=== PATIENT | male | born 1965 | race Caucasian/White ===

== ENCOUNTER → 2019-12-08 12:44 | Outpatient (BNVA) | payer MEDICAID, SELFPAY | PROVIDERS: Family Provider Student in an Organized Health Care Education/Training Program; PCP Student in an Organized Health Care Education/Training Program; Visit Provider Otolaryngology | DX: J32.9 Chronic sinusitis, unspecified (principal) | CPT/HCPCS: 99214 ==

== ENCOUNTER → 2019-12-21 09:51 | Outpatient (BNVA) | payer MEDICAID, SELFPAY | PROVIDERS: Family Provider Student in an Organized Health Care Education/Training Program; PCP Student in an Organized Health Care Education/Training Program; Referring Provider Student in an Organized Health Care Education/Training Program; Visit Provider Otolaryngology | DX: J32.9 Chronic sinusitis, unspecified (principal); J34.2 Deviated nasal septum; J34.3 Hypertrophy of nasal turbinates; F17.210 Nicotine dependence, cigarettes, uncomplicated | CPT/HCPCS: 99213; 99214 ==

== ENCOUNTER → 2021-07-23 10:50 | Outpatient (BNVA) | payer MEDICAID, SELFPAY | PROVIDERS: Family Provider Student in an Organized Health Care Education/Training Program; PCP Student in an Organized Health Care Education/Training Program; Referring Provider Student in an Organized Health Care Education/Training Program; Visit Provider Orthopaedic Surgery | DX: M54.2 Cervicalgia (principal) | CPT/HCPCS: 72040 ==

== ENCOUNTER → 2021-07-26 08:16 | Outpatient (BNVA) | payer MEDICAID, SELFPAY | PROVIDERS: Family Provider Student in an Organized Health Care Education/Training Program; PCP Student in an Organized Health Care Education/Training Program; Referring Provider Orthopaedic Surgery; Visit Provider Anesthesiology Pain Medicine | DX: M54.2 Cervicalgia (principal); Z87.891 Personal history of nicotine dependence; Z79.891 Long term (current) use of opiate analgesic | CPT/HCPCS: 99204 ==

== ENCOUNTER → 2021-08-07 13:35 | Outpatient (BNVA) | payer MEDICAID, SELFPAY | PROVIDERS: Family Provider Student in an Organized Health Care Education/Training Program; PCP Student in an Organized Health Care Education/Training Program; Visit Provider Anesthesiology Pain Medicine | DX: M54.12 Radiculopathy, cervical region (principal); Z79.891 Long term (current) use of opiate analgesic | CPT/HCPCS: 62321; J1100 ==

== ENCOUNTER → 2021-08-21 10:13 | Outpatient (BNVA) | payer MEDICAID, SELFPAY | PROVIDERS: Family Provider Student in an Organized Health Care Education/Training Program; PCP Student in an Organized Health Care Education/Training Program; Visit Provider Anesthesiology Pain Medicine | DX: M54.2 Cervicalgia (principal); M51.17 Intervertebral disc disorders with radiculopathy, lumbosacral region; Z79.891 Long term (current) use of opiate analgesic | CPT/HCPCS: 99213 ==

== ENCOUNTER → 2021-09-18 09:30 | Outpatient (BNVA) | payer MEDICAID, SELFPAY | PROVIDERS: Family Provider Student in an Organized Health Care Education/Training Program; PCP Student in an Organized Health Care Education/Training Program; Visit Provider Anesthesiology Pain Medicine | DX: M47.22 Other spondylosis with radiculopathy, cervical region (principal); M25.511 Pain in right shoulder; Z79.891 Long term (current) use of opiate analgesic; Z87.891 Personal history of nicotine dependence | CPT/HCPCS: 99214 ==

== ENCOUNTER → 2021-09-26 07:54 | Outpatient (BNVA) | payer MEDICAID, SELFPAY | PROVIDERS: Family Provider Student in an Organized Health Care Education/Training Program; PCP Student in an Organized Health Care Education/Training Program; Referring Provider Orthopaedic Surgery; Visit Provider Specialist | DX: M47.22 Other spondylosis with radiculopathy, cervical region (principal); F17.200 Nicotine dependence, unspecified, uncomplicated | CPT/HCPCS: 95908 ==

== ENCOUNTER 2021-11-11 12:15 | Outpatient (CLI) | payer MEDICAID, SELFPAY ==
--- NOTE | 2021-11-11 13:00 | MR_ITS ---
WS: [id number] MRI CERVICAL SPINE NONCONTRAST AND CONTRAST TECHNIQUE: Sagittal T1, T2 and STIR imaging. Axial T2, gradient, and fiesta imaging. Post gadolinium imaging was obtained. CLINICAL INFORMATION: M47.22 - Other spondylosis with radiculopathy, cervical r... COMPARISON: Outside examination December 19, 2019 FINDINGS: Straightening of the normal cervical lordosis. Anterior cervical fusion C6-C7. Fusion appears unchang ed from previous. Cord signal is normal. No abnormal gadolinium enhancement. C2-C3: Mild disc osteophyte complex with endplate ridging. Moderate right and mild left foraminal russell rowing. Spinal canal is patent. C3-C4: Mild disc osteophytic complex with broad-based central protrusion similar to previous. Mild ce ntral canal stenosis. Moderate right and mild left foraminal narrowing. C4-C5: Mild disc osteophyte complex with tiny shallow left pericentral protrusion. Mild left greater than right foraminal narrowing. Mild facet arthropathy. Spinal canal is patent. C5-C6: Disc osteophyte complex with endplate ridging. Moderate bilateral bony foraminal narrowing. Mi ld facet arthropathy. C6-C7: Prior postoperative changes ACDF. Spinal canal and foramen are patent. C7-T1: Mild disc bulging with osteophytic ridging. Mild left greater than right foraminal narrowing. Spinal canal is patent. Visualized brain stem structures: Normal. Prevertebral soft tissues: Normal. MR/MR cervical spine wo/w [id number] IMPRESSION: 1. Straightening of the normal cervical lordosis. Prior postoperative changes C6-7 appears unchanged from previous. 2. Mild broad-based central protrusion C3-C4 with slight effacement of ventral thecal sac. This appears similar to previous. 3. Moderate right C2-3 and C3-C4 bony foraminal narrowing. 4. Moderate bilateral bony foraminal narrowing C5-C6 with mild to moderate fac et arthropathy. 5. Mild left C7-T1 bony foraminal narrowing. 6. No abnormal gadolinium enhancement.
[2021-11-11] MEDS: gadobenate dimeglumine 20 mL vial IV (13:40)
== END 2021-11-11 12:16 | disposition home or self-care (01) ==
LOC: RADSHAW 12:18
PROVIDERS: PCP Student in an Organized Health Care Education/Training Program; Visit Provider Anesthesiology Pain Medicine
DX: M47.22 Other spondylosis with radiculopathy, cervical region (principal); M50.21 Other cervical disc displacement, high cervical region
CPT/HCPCS: 72156; A9577

== ENCOUNTER → 2021-11-13 13:07 | Outpatient (BNVA) | payer MEDICAID, SELFPAY | PROVIDERS: PCP Student in an Organized Health Care Education/Training Program; Referring Provider Student in an Organized Health Care Education/Training Program; Visit Provider Orthopaedic Surgery | DX: M77.12 Lateral epicondylitis, left elbow (principal); M25.562 Pain in left knee | CPT/HCPCS: 73080; 73560; 73565 ==

== ENCOUNTER → 2021-11-14 10:00 | Outpatient (BNVA) | payer MEDICAID, SELFPAY | PROVIDERS: PCP Student in an Organized Health Care Education/Training Program; Visit Provider Anesthesiology Pain Medicine | DX: M47.22 Other spondylosis with radiculopathy, cervical region (principal); M25.511 Pain in right shoulder; M79.601 Pain in right arm; Z79.891 Long term (current) use of opiate analgesic; Z87.891 Personal history of nicotine dependence | CPT/HCPCS: 99214 ==

== ENCOUNTER → 2021-12-03 13:05 | Outpatient (BNVA) | payer MEDICAID, SELFPAY | PROVIDERS: PCP Student in an Organized Health Care Education/Training Program; Visit Provider Anesthesiology Pain Medicine | DX: Z79.891 Long term (current) use of opiate analgesic (principal); M54.12 Radiculopathy, cervical region | CPT/HCPCS: 62321; J1100 ==

== ENCOUNTER → 2021-12-17 10:01 | Outpatient (BNVA) | payer MEDICAID, SELFPAY | PROVIDERS: PCP Student in an Organized Health Care Education/Training Program; Visit Provider Anesthesiology Pain Medicine | DX: M47.22 Other spondylosis with radiculopathy, cervical region (principal); M25.511 Pain in right shoulder; Z79.891 Long term (current) use of opiate analgesic; Z87.891 Personal history of nicotine dependence | CPT/HCPCS: 99214 ==

== ENCOUNTER → 2022-03-13 09:26 | Outpatient (BNVA) | payer MEDICAID, SELFPAY | PROVIDERS: PCP Student in an Organized Health Care Education/Training Program; Visit Provider Anesthesiology Pain Medicine | DX: M47.22 Other spondylosis with radiculopathy, cervical region (principal); Z79.891 Long term (current) use of opiate analgesic; Z87.891 Personal history of nicotine dependence | CPT/HCPCS: 99214 ==

== ENCOUNTER → 2022-03-24 14:04 | Outpatient (BNVA) | payer MEDICAID, SELFPAY | PROVIDERS: PCP Student in an Organized Health Care Education/Training Program; Visit Provider Anesthesiology Pain Medicine | DX: Z79.891 Long term (current) use of opiate analgesic (principal); Z87.891 Personal history of nicotine dependence; M54.12 Radiculopathy, cervical region | CPT/HCPCS: 62321; J1100 ==

== ENCOUNTER → 2022-03-25 14:50 | Outpatient (BNVA) | payer MEDICAID, SELFPAY | PROVIDERS: PCP Student in an Organized Health Care Education/Training Program; Referring Provider Anesthesiology Pain Medicine; Visit Provider Physician Assistant | DX: M50.30 Other cervical disc degeneration, unspecified cervical region (principal); Z98.1 Arthrodesis status | CPT/HCPCS: 99213; 99999 ==

== ENCOUNTER → 2022-04-07 10:48 | Outpatient (BNVA) | payer MEDICAID, SELFPAY | PROVIDERS: PCP Student in an Organized Health Care Education/Training Program; Visit Provider Anesthesiology Pain Medicine | DX: M47.22 Other spondylosis with radiculopathy, cervical region (principal); M25.511 Pain in right shoulder; M79.601 Pain in right arm; Z87.891 Personal history of nicotine dependence; Z79.891 Long term (current) use of opiate analgesic | CPT/HCPCS: 99213 ==

== ENCOUNTER 2022-05-14 09:58 | Day surgery (SDC) | payer MEDICAID, SELFPAY ==
[2022-05-12 11:50] VITALS: BMI 32.1
--- NOTE | 2022-05-12 20:19 | ANES.PREANE2 ---
Pre-Anesthetic Assessment Height/Weight: Height 1.88 m Weight 113.398 kg Preop Diagnosis: s/p cervical fusion Operation Date: 05/14/22 11:55 Proposed Procedures p Anterior Cervical Discectomy & Fusion C4/5 C5/6 C6/7 [id number](Not Applicable) - Krishan Doyle, DO Familial anesthetic complications: none Was Beta James taken within 24 hours: N/A Was Clonidine taken within 24 hours: N/A Social No alcohol and No tobacco Uses oral marijuana Exam alert, oriented x 3, clear to auscultation bilaterally and regular rate & rhythm Airway Submandibular: within normal limits Cervical ROM: Other (Limited flexion/extension ) Mallampati: Class III Comments: Comments: missing teeth Pulmonary Chronic Obstructive Pulmonary Disease and Sleep Apnea Deviated septum, nasal turbinate hypertrophy CV/HEM Hypertension METS < 4, denies CAD None reported Hepatic None reported GI None reported Metabolic None reported Musc/skel Lower Back Pain and Osteoarthritis/DJD Neuropsych Neuropathy (cervical radiculopathy ) Anesthetic Plan ASA status: 3 (56 year old former smoker with hx of COPD, marijuana use, cervical radiculopathy, htn) Anesthesia: Anesthesia Evaluation and General Other: We discussed risk and benefits of general anesthesia including PONV, sore throat (sometimes severe), corneal abrasion, positioning and peripheral nerve injuries, life threatening allergic reaction, post operative ICU admission requiring prolonged intubation, aspiration, stroke, heart attack, , and rare incidences of recall. Patient consents to proceed with general anesthesia, arterial line placement. Discussed 2 PIV, arterial line. Risk of > 500 ml blood loss (7ml/kg in children): Yes, adequate IV access and fluids planned Medications/Allergies Home Medications Medication Instructions Recorded Confirmed Last Taken Type albuterol sulfate 90 mcg/actuation 2 puff INHALATION Q6H PRN 12/02/19 05/12/22 Unknown History aerosol inhaler amlodipine 10 mg tablet 10 mg PO ONCE 12/02/19 05/12/22 Unknown History bupropion HCl 150 mg 24 hr tablet, 150 mg PO QAM 12/02/19 05/12/22 Unknown History extended release fluticasone propionate 50 1 spray INTRANASAL BID 12/02/19 05/12/22 Unknown History mcg/actuation nasal spray,suspension (Flonase Allergy Relief) lisinopril 40 mg tablet 40 mg PO ONCE 12/02/19 05/12/22 Unknown History loratadine 10 mg tablet (Allergy 10 mg PO ONCE 12/02/19 05/12/22 Unknown History Relief (loratadine)) montelukast 10 mg tablet 10 mg PO ONCE 12/02/19 05/12/22 Unknown History (Singulair) tiotropium bromide 18 mcg capsule 1 cap INHALATION ONCE 12/02/19 05/12/22 Unknown History with inhalation device (Spiriva with HandiHaler) atorvastatin 40 mg tablet 40 mg PO DAILY 07/26/21 05/12/22 Unknown History fluticasone 250 mcg-salmeterol 50 1 inh INHALATION BID 07/26/21 05/12/22 Unknown History mcg/dose blistr powdr for inhalation (Advair Diskus) naproxen sodium 220 mg tablet 220 mg PO TID PRN tab 07/26/21 05/12/22 Unknown History (Aleve) tramadol 50 mg tablet 50 mg PO ONCE PRN tab 07/26/21 05/12/22 Unknown History tizanidine 4 mg tablet 4 mg PO BID PRN #60 tab 12/17/21 05/12/22 Unknown Rx MARIJUIANA 1 tab PO DAILY 03/24/22 05/12/22 Unknown History ibuprofen 200 mg tablet 200 mg PO Q6H PRN 03/24/22 05/12/22 Unknown History naproxen sodium 220 mg tablet 220 mg PO BID PRN 03/24/22 05/12/22 Unknown History (Aleve) Allergies Allergy/AdvReac Type Severity Reaction Status Date / Time cephalexin [From Keflex] Allergy Unknown ALGY-Anaphy Verified 05/12/22 11:42 laxis codeine Allergy Unknown ALGY-Anaphy Verified 05/12/22 11:42 laxis penicillin V Allergy Unknown ALGY-Anaphy Verified 05/12/22 11:42 laxis PFSH Anesthesia Medical History Chronic sinusitis Deviated septum Nasal turbinate hypertrophy Family History Mother Cancer Diabetes Social History Smoking and tobacco status: former smoker Quit status (tobacco): considering quitting Alcohol intake: current Alcohol intake frequency: holidays/special occasions only History of recent travel: No Data Anesthesia Cardiac Studies: No Data to Display
[2022-05-14] VITALS (21 sets, daily range): BP systolic 126–197; BP diastolic 89–120; PULSE 77–95; RESP 13–22; TEMP 36.2–36.9; O2SAT 89–96
--- NOTE | 2022-05-14 | SCC_ITS ---
Procedure done: 1. Anterior diskectomy C4/5 2. Anterior discectomy C5/6 3. Insertion of cage C4/5 4. Insertion of Cage C5/6 5. Instrumentation with anterior plate from C4-C6 6. Use of allograft 7. Removal of plate and screws from C6/7 21.4 seconds of fluoroscopic guidance, for a cumulative dose of 6.28 mGy, was provided to Dr. Doyle by the radiology department. C-arm images of the cervical spine were saved for the patient's permanent record. LORENA
--- NOTE | 2022-05-14 | XR_ITS ---
WS: [id number] Exam: XR cervical spine 3V* [id number] Date/Time of Exam: 05/14/2022 12:00 AM Reason For Exam: acdf AP and lateral intraoperative C-arm images of the cervical spine are submitted for evaluation. There is anterior fusion of the cervical spine from C4 to C6 with plate and screw fixation. There are disc spacers at C4-5 and C5-6. The fusion appears to be in good alignment based on images presented. An ET tube is noted.
--- NOTE | 2022-05-14 10:24 | P.ANESUD_ITS ---
Pre-Anesthetic Update Pre-Anesthetic Assessment: Date of Surgery/Procedure: 05/14/22 Preop Anushka gnosis: Cervical Spondylosis w Radiculopathy, Cervical Fusion Proposed Procedure: Operation Date: 05/14/22 11:55 Proposed Procedures p Anterior Cervical Discectomy & Fusion C4/5 C5/6 C6/7 [id number](Not Applicable) - Krishan Doyle, DO Any changes to Pre-Anesthetic Assessment?: No Exam: Pre-Anes Outpt Exam: alert, oriented x 3, clear to auscultation bilaterally and regular rate & rhythm Cardiac Studies: No Data to Display
--- NOTE | 2022-05-14 10:36 | W.PM.OPSUD ---
Surgery/Procedure H&P Update DATE OF PROCEDURE: May 14, 2022 DATE H&P PERFORMED: 05/14/22 PREOP DIAGNOSIS: Cervical Spondylosis w Radiculopathy, Cervical Fusion PLANNED PROCEDURE: Operation Date: 05/14/22 11:55 Proposed Procedures p Anterior Cervical Discectomy & Fusion C4/5 C5/6 C6/7 [id number](Not Applicable) - Krishan Doyle DO
--- NOTE | 2022-05-14 10:37 | PM.HP ---
Providers/Chief Complaint Primary Care Provider: Fredrick Duenas Chief Complaint: ACDF C4/5 C5/5 C6/7 [id number] History of Present Illness Reji Peter is a 56 year old male neck pain and bilateral arm pain. He states his pain is a 4/10. He has [facility] over a [facility] for injections. He states his last epidural injection was yesterday 03/24/22. He states is provided him some mild relief. He states he has also completed a nerve conduction study test, and cervical spine MRI, he is wanting to go over those results and discuss further treatment.? He reports improvement for about 2 months following injections where he does not take tramadol.? He was recommended to take and try marijuana to help deal with his pain which she states does help.? He reports Dr. Sousa fixed his neck at C6-7 number of years ago but the pain has progressively returned with both arms being affected.? He reports significant relief for 2 months after the injections. Review of Systems General: Reports: 10 or more systems reviewed and unremarkable except in HPI and below Const: Denies: fever(s) Eyes: Denies: eye discharge ENMT: Denies: throat pain Card: Denies: chest pain Resp: Denies: dyspnea GI: Denies: nausea or vomiting : Denies: urinary incontinence Musc: Reports: neck pain Skin/Breast: Denies: rash Psych: Denies: anxiety Endo: Denies: polyuria [place]/Lymph: Denies: easy bruising All/Imm: Denies: facial swelling Medications/Allergies Home Medications Medication Instructions Recorded Confirmed Last Taken Type albuterol sulfate 90 mcg/actuation 2 puff INHALATION Q6H PRN 12/02/19 05/14/22 05/12/22 History aerosol inhaler amlodipine 10 mg tablet 10 mg PO ONCE 12/02/19 05/14/22 05/12/22 History bupropion HCl 150 mg 24 hr tablet, 150 mg PO QAM 12/02/19 05/14/22 05/12/22 History extended release fluticasone propionate 50 1 spray INTRANASAL BID 12/02/19 05/14/22 05/12/22 History mcg/actuation nasal spray,suspension (Flonase Allergy Relief) lisinopril 40 mg tablet 40 mg PO ONCE 12/02/19 05/14/22 05/12/22 History loratadine 10 mg tablet (Allergy 10 mg PO ONCE 12/02/19 05/12/22 Unknown History Relief (loratadine)) montelukast 10 mg tablet 10 mg PO ONCE 12/02/19 05/14/22 05/12/22 History (Singulair) tiotropium bromide 18 mcg capsule 1 cap INHALATION ONCE 12/02/19 05/14/22 05/12/22 History with inhalation device (Spiriva with HandiHaler) atorvastatin 40 mg tablet 40 mg PO DAILY 07/26/21 05/14/22 05/12/22 History fluticasone 250 mcg-salmeterol 50 1 inh INHALATION BID 07/26/21 05/14/22 05/12/22 History mcg/dose blistr powdr for inhalation (Advair Diskus) naproxen sodium 220 mg tablet 220 mg PO TID PRN tab 07/26/21 05/14/22 05/12/22 History (Aleve) tramadol 50 mg tablet 50 mg PO ONCE PRN tab 07/26/21 05/14/22 05/12/22 History tizanidine 4 mg tablet 4 mg PO BID PRN #60 tab 12/17/21 05/14/22 05/12/22 Rx MARIJUIANA 1 tab PO DAILY 03/24/22 05/12/22 Unknown History ibuprofen 200 mg tablet 200 mg PO Q6H PRN 03/24/22 05/14/22 05/12/22 History naproxen sodium 220 mg tablet 220 mg PO BID PRN 03/24/22 05/12/22 Unknown History (Aleve) Allergies Allergy/AdvReac Type Severity Reaction Status Date / Time cephalexin [From Keflex] Allergy Unknown ALGY-Anaphy Verified 05/12/22 11:42 laxis codeine Allergy Unknown ALGY-Anaphy Verified 05/12/22 11:42 laxis penicillin V Allergy Unknown ALGY-Anaphy Verified 05/12/22 11:42 laxis PFSH Acute PFSH: Medical History Chronic sinusitis Deviated septum Nasal turbinate hypertrophy Family History Mother Cancer Diabetes Social History Smoking and tobacco status: former smoker Quit status (tobacco): considering quitting Alcohol intake: current Alcohol intake frequency: holidays/special occasions only History of recent travel: No Vitals/I&O/Wt Weight last 48 hrs Weight 250 lb Physical Exam Narrative: Narrative:?? EXAM NARRATIVE: Keegan cheng is alert and oriented x3 with a good general terri earance normal nor mal affect.? Nonte nder with palpatio n about the incisi onal site.? Incisi on appears to be h ealing nicely with out signs of eryth mone or drainage.? No signs of infect ion.? Good motor s trength throughout both upper extrem ities.? Appears to fire in all motor groups with 4/5 s trength.? Hands ar e warm good cap re fill in all digits .? Normal sensatio n to light touch i n all dermatomal a reas. HENMT:?? COMMON NORMALS: no rmocephalic? HEAD & SCALP: normoceph alic Resp:?? COMMON NORMALS: no rmal respiratory e ffort Cardio:?? COMMON NORMALS: re gular rate and reg ular rhythm? RATE: regular rate? RHY THM: regular rhyth m GI:?? COMMON NORMALS: So ft to palpation an d non-tender? PALP ATION: Yes Soft to palpation :?? COMMON NORMALS: Ye s no CVA tendernes s? BLADDER/KIDNEY EXAM: Yes no CVA t enderness Back/Pelvis:?? COMMON NORMALS: no CVA tenderness Psych:?? COMMON NORMALS: me ntal status grossl y normal and coope rative A&P Assessment and plan (1) Cervical spondylosis with radiculopathy: ACDF C4/5 and C5/6 removal plate from C6/7 Status: Acute Attestations Medical Necessity Statement*: failed conservative tx Coding Level of Care Code Acute Collection Card Clerk for Chg Fwd Diagnoses Cervical spondylosis with radiculopathy M47.22
[2022-05-14] MEDS: sodium chloride 0.9% 1,000 ML 30 ML IV (10:44)
[2022-05-14] MEDS: midazolam 1 mg/mL INJ 2 mL 2 MG IVP (11:47)
[2022-05-14] MEDS: clindamycin 900 MG/50 ML PREMIX 100 MG IV (12:11)
--- NOTE | 2022-05-14 14:49 | P.OP_ITS ---
Operative Report Date of procedure: May 14, 2022 Pre-op diagnosis: Preop Diagnosis Cervical Spondylosis w Radiculopathy, Cervical Fusion Post-op diagnosis: same Procedure done: 1. Anterior diskectomy C4/5 2. Anterior discectomy C5/6 3. Insertion of cage C4/5 4. Insertion of Cage C5/6 5. Instrumentation with anterior plate from C4-C6 6. Use of allograft 7. Removal of plate and screws from C6/7 Surgeon: Krishan Doyle Wood Web Weaving Machine Operator: Rakesh Conroy Wood Web Weaving Machine Operator: The surgical appliance fitter, Rakesh Conroy, PAC was needed for his expertise under the microscope. He was important and necessary throughout the procedure to complete in a safe and timely manner. He assisted with patient positioning prepping and draping tissue retraction suctioning of the operative field protection of the dural sac and tissue closure Estimated blood loss (mL): 20 Procedure: 1. Anterior diskectomy C4/5 2. Anterior discectomy C5/6 3. Insertion of cage C4/5 4. Insertion of Cage C5/6 5. Instrumentation with anterior plate from C4-C6 6. Use of allograft 7. Removal of plate and screws from C6/7 The patient was taken to the operating room, where he underwent general endotracheal anesthesia without complications. He was then positioned supine on the operating table, and all areas of impingement were well padded. The arms were carefully padded and tucked at his sides. A roll was placed between the shoulder blades.. An x-ray was done to determine the appropriate level for the skin incision. The entire neck was then sterilely prepped and draped in the usual fashion. Neuromonitoring was attached prior to prepping. A transverse skin incision was made and carried down to the platysma muscle. This was then split in line with its fibers. Blunt dissection was carried down medial to the carotid sheath and lateral to the trachea and esophagus until the anterior cervical spine was visualized. A needle was placed into a disc and an x-ray was done to determine its location. The longus colli muscles were then elevated bilaterally with the electrocautery unit. Self-retaining retractors were placed deep to the longus colli muscle. The plate was identified there was on C6-7. This was a Synthes plate. The inner screws from each screw was removed. Within the screws removed. Therefore screws total removed. And then the plate was removed. Attention was brought to the C5/6 level that was confirmed on x-ray. A caspar pin was placed into the C5 vertebrae and the C6 vertebrae. The disk space was then distracted. The microscope was then brought in. A radical anterior discectomies were performed at C5/6. This included complete removal of the anterior annulus, nucleus, and posterior annulus. The posterior longitudinal ligament was removed as were the posterior osteophytes. Foraminotomies were then accomplished bilaterally. This was done using a high speed ki, kerrison rongeurs and curretes Once all of this was accomplished, the curved currette was used to check for any residual compression. The central canal was wide open as were the foramen. A high-speed bur was used to remove the cartilaginous endplates above and below the interspace. Bleeding cancellous bone was exposed. The disc space were measured and appropriate size cage were placed sterilely onto the field. Allograft graft was packed into the cages. The cage was then placed and there was good juxtaposition against the bleeding decorticated surfaces and good dist raction of each interspace. Attention was brought to the next interspace. The Potwin pins were removed. Bone wax was used to prevent any bleeding from occurring at the pin sites. Attention was brought to the C4/5 level that was confirmed on x-ray. A caspar pin was placed into the C4 vertebrae and the C5 vertebrae. The disk space was then distracted. The microscope was then brought in. A radical anterior discectomies were performed at C4/5. This included complete removal of the anterior annulus, nucleus, and posterior annulus. The posterior longitudinal ligament was removed as were the posterior osteophytes. Foraminotomies were then accomplished bilaterally. This was done using a high speed ki, kerrison rongeurs and curretes Once all of this was accomplished, the curved currette was used to check for any residual compression. The central canal was wide open as were the foramen. A high-speed bur was used to remove the cartilaginous endplates above and below the interspace. Bleeding cancellous bone was exposed. The disc space were measured and appropriate size cage were placed sterilely onto the field. Allograft graft was packed into the cages. The cage was then placed and there was good juxtaposition against the bleeding decorticated surfaces and good distraction of each interspace. Attention was brought to the next interspace. The Potwin pins were removed. Bone wax was used to prevent any bleeding from occurring at the pin sites. The appropriate size anterior cervical locking plate was chosen and bent into gentle lordosis. Two screws were then placed into each of the vertebral bodies at []. There was excellent purchase. A final x-ray was done confirming good position of the hardware and Cages. The locking screws were then applied, also with excellent purchase. Following a final copious irrigation, there was good hemostasis and no dural leaks. The carotid pulse was strong. The wounds were then closed in layers using 2-0 Vicryl suture for the platysma muscle, 2-0 Vicryl suture for the subcutaneous tissue, and 4-0 monocryl suture in a subcuticular skin closure. Glue was placed followed by application of a sterile dressing. The drain was hooked to bulb suction. A soft collar was applied. The patient was then carefully returned to the supine position on his hospital bed where he was reversed and extubated and taken to the recovery room having tolerated the procedure well.
[2022-05-14] MEDS: labetalol 5 mg/mL SDV 20mL 10 MG IVP ×2 (15:27→16:13)
--- NOTE | 2022-05-14 15:28 | PM.PACU ---
PACU note Narrative: Patient in PACU, wanting to urinate but unable to void into urinal. Catheter pulled in OR. BP 173/111, p 89, SpO2% 97, RR. Labetalol 10 mg ordered. Bladder scan ordered.
[2022-05-14] MEDS: diphenhydrAMINE 50 mg/mL SDV 1mL 12.5 MG IVP (15:34)
--- NOTE | 2022-05-14 16:33 | ANE.PACU2 ---
Inpatient post-anesthesia follow up: Airway intact: Yes Vital signs: Temperature 98.2 F Pulse Rate 83 Respiratory Rate 18 Blood Pressure 153/89 Pulse Oximetry 96 Oxygen Delivery Me thod Room Air Oxygen Flow Rate Fraction of Inspir ed Oxygen Hydration adequate: Yes Nausea and vomiting: No Pain level: 1 Mental status: Baseline
[2022-05-14] MEDS: HYDROcodone-acetaminophen 5-325 mg Tablet 1 TAB PO (16:56)
== END 2022-05-14 17:09 | disposition home or self-care (01) ==
PROVIDERS: PCP Student in an Organized Health Care Education/Training Program; Visit Provider Orthopaedic Surgery
PROC: 0RB30ZZ Excision of Cervical Vertebral Disc, Open Approach (ICD-10-PCS; CPT 22551; principal; 2022-05-14 11:45)
DX: M47.22 Other spondylosis with radiculopathy, cervical region (principal); J44.9 Chronic obstructive pulmonary disease, unspecified; G47.30 Sleep apnea, unspecified; I10 Essential (primary) hypertension; Z87.891 Personal history of nicotine dependence
CPT/HCPCS: 20680; 20930; 22551; 22552; 22845; 22853 ×2; 51702; 72040; 76000; 97760; C1713; C9359; J0330; J1100; J1170; J1200; J2250; J2405; J2704; J2710; J3010; J3490; J7030; L0174

== ENCOUNTER → 2022-05-27 13:36 | Outpatient (BNVA) | payer MEDICAID, SELFPAY | PROVIDERS: PCP Student in an Organized Health Care Education/Training Program; Visit Provider Physician Assistant | DX: Z47.89 Encounter for other orthopedic aftercare (principal); Z98.890 Other specified postprocedural states; Z98.1 Arthrodesis status | CPT/HCPCS: 72040; 99024 ==

== ENCOUNTER → 2022-06-24 08:31 | Outpatient (BNVA) | payer MEDICAID, SELFPAY | PROVIDERS: PCP Student in an Organized Health Care Education/Training Program; Visit Provider Physician Assistant | DX: Z98.1 Arthrodesis status (principal); Z47.89 Encounter for other orthopedic aftercare | CPT/HCPCS: 72040; 99024; 99213 ==

== ENCOUNTER → 2022-08-05 09:30 | Outpatient (BNVA) | payer MEDICAID, SELFPAY | PROVIDERS: PCP Student in an Organized Health Care Education/Training Program; Visit Provider Physician Assistant | DX: M47.12 Other spondylosis with myelopathy, cervical region (principal); Z98.1 Arthrodesis status | CPT/HCPCS: 72040; 99213 ==

== ENCOUNTER → 2022-08-11 09:41 | Outpatient (BNVA) | payer MEDICAID, SELFPAY | PROVIDERS: PCP Student in an Organized Health Care Education/Training Program; Visit Provider Anesthesiology Pain Medicine | DX: M25.511 Pain in right shoulder (principal); M79.601 Pain in right arm; Z87.891 Personal history of nicotine dependence; M47.22 Other spondylosis with radiculopathy, cervical region | CPT/HCPCS: 99214 ==

== ENCOUNTER → 2022-09-08 10:34 | Outpatient (BNVA) | payer MEDICAID, SELFPAY | PROVIDERS: PCP Student in an Organized Health Care Education/Training Program; Visit Provider Anesthesiology Pain Medicine | DX: M79.18 Myalgia, other site (principal); M47.22 Other spondylosis with radiculopathy, cervical region; Z87.891 Personal history of nicotine dependence | CPT/HCPCS: 20553; 99214 ==

== ENCOUNTER 2024-11-29 09:23 | Emergency (ER) | payer MEDICARE, SELFPAY ==
[2024-11-29 09:32] VITALS: BP 162/97; PULSE 105; TEMP 36.8; O2SAT 98
--- NOTE | 2024-11-29 11:24 | CTR_ITS ---
PROCEDURE INFORMATION: Exam: CT Cervical Spine Without Contrast Exam date and time: 11/29/2024 11:49 AM Age: 59 years old Clinical indication: Pain; Cervicalgia; Prior surgery; Surgery date: 6+ months; Surgery type: Acdf c4-c5/6; Additional info: Cervical nerve impingement TECHNIQUE: Imaging protocol: Computed tomography of the cervical spine without contrast. Radiation optimization: All CT scans at this facility use at least one of these dose optimization techniques: automated exposure control; mA and/or kV adjustment per patient size (includes targeted exams where dose is matched to clinical indication); or iterative reconstruction. COMPARISON: 1. MR cervical spine wo/w [id number] 11/11/2021 1:07 PM 2. Cervical spine plain films dated 08/05/2022 RADIATION DOSE METRICS: Total DLP (mGy-cm): 232.97 FINDINGS: Bones/joints: The cervical vertebral body heights are maintained. Normal alignment. Redemonstration of anterior hardware spinal fixation utilizing plate and screws spanning C4 through C6 with interbody construct. There is bony fusion of the C6 and C7 vertebral bodies. C2-C3: The spinal canal is patent. Moderate right neuroforaminal narrowing secondary to uncovertebral and facet hypertrophy. C3-C4: Broad-based disc osteophyte complex with mild central canal stenosis. Moderate right neuroforaminal narrowing secondary to uncovertebral and facet hypertrophy. C4-C5: No significant disc bulge or herniation. No severe spinal canal stenosis. No significant neuroforaminal narrowing. C5-C6: Broad-based disc osteophyte complex with mild central canal stenosis. Mild bilateral neuroforaminal narrowing secondary to uncovertebral and facet hypertrophy. C6-C7: Broad-based disc osteophyte complex with mild central canal stenosis. Mild bilateral neuroforaminal narrowing secondary to uncovertebral and facet hypertrophy. C7-T1: No significant disc bulge or herniation. No severe spinal canal stenosis. No significant neuroforaminal narrowing. Lungs: Lung apices are normal. Soft tissues: Partially calcified right thyroid nodule measuring up to 0.5 cm. Thyroid gland would be better assessed with thyroid ultrasound clinically warranted. CT/CT cervical spin wo con* [id number] IMPRESSION: No acute bony abnormality. Postsurgical and multilevel degenerative changes of the cervical spine as outlined above. If symptoms persist, consider further evaluation with MRI, if there are no contraindications to obtaining a MRI scan. COMMENTS: Consistent with the [place] [employer]'s Incidental Findings Committee white paper (J Am Genevieve Radiol 2015): In patients aged 35 years and older with an incidental thyroid nodule equal to or greater than 1.[address], MRI or extrathyroidal US, further evaluation with dedicated thyroid US is recommended for patients with normal life expectancy and without comorbidities. For smaller nodules without suspicious features, no further evaluation or follow up is recommended.
--- NOTE | 2024-11-29 11:25 | W.ED.BACK ---
HPI - Back Pain/Injury General: Chief Complaint: Back Pain/Injury Stated Complaint: back/neckpain Time Seen by Provider: 11/29/24 09:49 History of Present Illness: 59-year-old male presents to the emergency room with complaint of severe neck pain radiating into his left arm has been going on for the last week. He has chronic pain issues and neck issues he has had previous surgeries before no recent trauma or injury. It began a week ago he was seen by his primary care doctor since it started they started on the course of steroids despite this it is actually gotten worse and not better. This morning began to be quite severe he states it radiates into his little finger and into his posterior shoulder. No fever sweats chills no cough shortness of breath no chest pain Associated symptoms: Deny abdominal pain, chills, dysuria, fever(s) or urinary urgency Related Data Home Medications Medication Instructions Recorded Confirmed amlodipine 10 mg tablet 10 mg PO ONCE 12/02/19 11/29/24 lisinopril 40 mg tablet 40 mg PO ONCE 12/02/19 11/29/24 montelukast 10 mg tablet 10 mg PO ONCE 12/02/19 11/29/24 (Singulair) atorvastatin 40 mg tablet 40 mg PO DAILY 07/26/21 11/29/24 ibuprofen 200 mg tablet 200 mg PO Q6H PRN Pain 03/24/22 11/29/24 fluticasone furoate 100 1 ea inhalation DAILY 11/29/24 11/29/24 mcg-vilanterol 25 mcg/dose inhalation powder (Breo Ellipta) omeprazole 40 mg capsule,delayed 40 mg PO DAILY 11/29/24 11/29/24 release prednisone 50 mg tablet 50 mg PO DAILY 11/29/24 11/29/24 tamsulosin 0.4 mg capsule 0.4 mg PO DAILY 11/29/24 11/29/24 Previous Rx's Medication Instructions Recorded hydrocodone 5 mg-acetaminophen 325 1 tab PO Q6H PRN pain 5 days #30 08/05/22 mg tablet tabs oxycodone-acetaminophen 7.5 mg-325 1 tab PO Q6H PRN pain #20 tabs 11/29/24 mg tablet (Percocet) prednisone 20 mg tablet 20 mg PO TID #15 tabs 11/29/24 pregabalin 75 mg capsule (Lyrica) 75 mg PO BID #60 caps 11/29/24 tizanidine 4 mg tablet 4 mg PO Q6H PRN muscle spasticity 11/29/24 #20 tabs Allergies Allergy/AdvReac Type Severity Reaction Status Date / Time cephalexin [From Keflex] Allergy Unknown ALGY-Anaphy Verified 11/29/24 09:39 laxis codeine Allergy Unknown ALGY-Anaphy Verified 11/29/24 09:39 laxis penicillin V Allergy Unknown ALGY-Anaphy Verified 11/29/24 09:39 laxis Review of Systems Const: Denies: fever(s) or chills Card: Denies: chest pain Resp: Denies: dyspnea GI: Denies: abdominal pain : Denies: dysuria, urinary frequency or urinary urgency Musc: Reports: neck pain and extremity pain; Denies: back pain Skin/Breast: Denies: rash PFSH ED PFSH: Medical History Nasal turbinate hypertrophy Deviated septum Chronic sinusitis Family History Mother Cancer Diabetes Social History Smoking and tobacco/nicotine status: former use of tobacco/nicotine Quit status (tobacco/nicotine): considering quitting Alcohol intake: current Alcohol intake frequency: holidays/special occasions only Substance/Drug Use: former Physical Exam Const: COMMON NORMALS: no acute distress GENERAL APPEARANCE: cooperative and comfortable ORIENTATION/CONSCIOUSNESS: Yes awake, Yes oriented to person, Yes oriented to place and Yes oriented to time HENMT: COMMON NORMALS: normocephalic, atraumatic and hearing grossly normal bilaterally HEAD & SCALP: normocephalic and atraumatic Resp: COMMON NORMALS: normal respiratory effort, No retractions, No use of accessory muscles and clear to auscultation bilaterally AUSCULTATION: clear to auscultation bilaterally Cardio: COMMON NORMALS: regular rate, regular rhythm and No murmurs present (Cardio) RATE: regular rate RHYTHM: regular rhythm GI: COMMON NORMALS: Soft to palpation and No hepatosplenomegaly present AUSCULTATION: Yes normoactive bowel sounds PALPATION: Yes Soft to palpation, No Tenderness to palpation present (GI), No Guarding due to palpation present (GI) and Yes No hepatosplenomegaly present Extremity: OTHER: Severe neck pain with left arm radiculopathy C8. Neuro: SENSORIUM/ORIENTATION: Yes oriented to person, Yes oriented to place and Yes oriented to time Skin: COMMON NORMALS: no rashes or lesions noted GENERAL SKIN EXAM: no rashes or lesions noted Course Vital Signs: Vital signs: Vital Signs Temperature 98.2 F 11/29/24 09:32 Pulse Rate 106 H 11/29/24 14:31 Respiratory Rate 18 11/29/24 13:53 Blood Pressure 135/97 11/29/24 14:31 Pulse Oximetry 95 11/29/24 14:31 Oxygen Delivery Me thod Room Air 11/29/24 12:42 MDM - Back Pain/Injury Medical Decision Making Improved with medication given reviewed the CT with Dr. Doyle who previously did his surgery. Dr. Doyle recommends an MRI in the morning and he will see him the following day. Will start him on a steroid taper give him Percocet for pain as well as tizanidine and Lyrica. At the time of discharge patient was moving his neck freely with no exacerbation of his radicular arm pain. Note his white count is elevated believe that is from the steroids he was previously prescribed Patient has an appointment tomorrow morning at 930 for an MRI and the following morning with Dr. Doyle to review and discuss treatment options Medical Records I reviewed the patient's medical records. Labs I reviewed the patient's lab results. 11/29/24 11:30 11/29/24 11:30 Radiology Impressions Cervical Spine CT 11/29/24 11:24 IMPRESSION: No acute bony abnormality. Postsurgical and multilevel degenerative changes of the cervical spine as outlined above. If symptoms persist, consider further evaluation with MRI, if there are no contraindications to obtaining a MRI scan. COMMENTS: Consistent with the [employer]'s Incidental Findings Committee white paper (J [employer] Gen[employer]ieve [employer]iol 2015): In patients aged 35 years and older with an incidental thyroid nodule equal to or greater than 1.[address], MRI or extrathyroidal US, further evaluation with dedicated thyroid US is recommended for patients with normal life expectancy and without comorbidities. For smaller nodules without suspicious features, no further evaluation or follow up is recommended. Laboratory Results WBC 17.54 10^3/uL (3.29-11.43) H 11/29/24 11:30 RBC 5.44 10^6/uL (3.85-5.65) 11/29/24 11:30 Hgb 17.70 g/dL (11.27-16.99) H 11/29/24 11:30 Hct 52.5 % (37-53) 11/29/24 11:30 MCV 96.5 fl (82-101) 11/29/24 11:30 MCH 32.5 pg (27-33) 11/29/24 11:30 MCHC 33.7 g/dL (30-55) 11/29/24 11:30 RDW 12.8 % (12.1-15.1) 11/29/24 11:30 Plt Count 274 10^3/cmm (157-399) 11/29/24 11:30 MPV 9.3 fL (7.4-10.4) 11/29/24 11:30 Neut % (Auto) 56.0 % 11/29/24 11:30 Lymph % (Auto) 32.4 % 11/29/24 11:30 [place] % (Auto) 9.9 % 11/29/24 11:30 Eos % (Auto) 1.1 % 11/29/24 11:30 Baso % (Auto) 0.2 % 11/29/24 11:30 Neut # (Auto) 9.82 10^3/uL (1.8-7.7) H 11/29/24 11:30 Lymph # (Auto) 5.7 10^3/uL (0.8-4.8) H 11/29/24 11:30 [place] # (Auto) 1.7 10^3/uL (0.2-0.9) H 11/29/24 11:30 Eos # (Auto) 0.2 10^3/uL (0.0-0.8) 11/29/24 11:30 Baso # (Auto) 0.0 10^3/uL (0.0-0.1) 11/29/24 11:30 Nucleated RBC % (auto) 0 % 11/29/24 11:30 Nucleated RBCs # 0.0 /100WBC 11/29/24 11:30 Sodium 139 mmol/L (136-145) 11/29/24 11:30 Potassium 3.6 mmol/L (3.5-5.1) 11/29/24 11:30 Chloride 97 mmol/L (98-107) L 11/29/24 11:30 Carbon Dioxide 22 mmol/L (22-29) 11/29/24 11:30 Anion Gap 23.6 (5-19) H 11/29/24 11:30 BUN 14 mg/dL (6-20) 11/29/24 11:30 Creatinine 1.1 mg/dL (0.7-1.2) 11/29/24 11:30 GFR Calculation 68.5 mL/min (90-130) L 11/29/24 11:30 Glucose 119 mg/dL (65-115) H 11/29/24 11:30 Calculated Osmolality 290 mOsm/kg (285-295) 11/29/24 11:30 Calcium 10.0 mg/dL (8.5-10.5) 11/29/24 11:30 Total Bilirubin 0.6 mg/dL (0.15-1.2) 11/29/24 11:30 AST 20 U/L (0-40) 11/29/24 11:30 ALT 31 U/L (0-41) 11/29/24 11:30 Alkaline Phosphatase 60 U/L (40-130) 11/29/24 11:30 C-Reactive Protein 3.0 mg/L (0.0-4.9) 11/29/24 11:30 Total Protein 7.3 g/dL (6.6-8.7) 11/29/24 11:30 Albumin 4.6 g/dL (3.5-5.2) 11/29/24 11:30 Globulin 2.7 g/dL (1.3-4.6) 11/29/24 11:30 No radiology studies performed this visit Discharge Plan Discharge Patient Disposition: Home Clinical Impression: Cervical radiculopathy at C8, Status post cervical spinal fusion Condition: Stable Prescriptions: New tizanidine 4 mg tablet 4 mg PO Q6H PRN (Reason: muscle spasticity) Qty: 20 0RF Rx Instructions: do not exceed 3 doses per 24 hrs prednisone 20 mg tablet 20 mg PO TID Qty: 15 0RF Rx Instructions: 1 p.o. 3 times daily x3 days, 1 p.o. twice daily x2 days, 1 p.o. daily x2 days oxycodone-acetaminophen [Percocet] 7.5-325 mg tablet 1 tab PO Q6H PRN (Reason: pain) Qty: 20 0RF pregabalin [Lyrica] 75 mg capsule 75 mg PO BID Qty: 60 0RF Discontinued cyclobenzaprine 10 mg tablet 10 mg PO TID PRN (Reason: muscle spasm) Qty: 30 0RF No Action lisinopril 40 mg tablet 40 mg PO ONCE amlodipine 10 mg tablet 10 mg PO ONCE montelukast [Singulair] 10 mg tablet 10 mg PO ONCE atorvastatin 40 mg tablet 40 mg PO DAILY ibuprofen 200 mg tablet 200 mg PO Q6H PRN (Reason: Pain) hydrocodone-acetaminophen 5-325 mg tablet 1 tab PO Q6H PRN (Reason: pain) 5 Days Qty: 30 0RF omeprazole 40 mg capsule,delayed release(DR/EC) 40 mg PO DAILY tamsulosin 0.4 mg capsule 0.4 mg PO DAILY prednisone 50 mg tablet 50 mg PO DAILY fluticasone furoate-vilanterol [Breo Ellipta] 100-25 mcg/dose blister with device 1 ea INHALATION DAILY Discharge Orders: Discharge ED (Routine); Ordered 11/29/24 Ordered By: Demarco Schafer Referrals: Fredrick Duenas [Primary Care Provider] - Discharge Diet: Usual diet Discharge Activity: Limit activity as instructed Patient Instructions: Opioid Safety, Pain Management Activity Restrictions/Additional Instructions: Thank you for choosing [facility] for your healthcare needs today. It is very important that you follow up as instructed or that you return to the Emergency Department should you have concerns or if your condition changes or worsens in any way. You are seen in the emergency room with cervical radiculopathy. You are discharged home with pain medications a steroid taper Lyrica and tizanidine. Take the steroid taper you are given today in place of any steroid you are given previously. Begin the steroid taper tomorrow morning. You can use the tizanidine in place of cyclobenzaprine. Use the oxycodone instead of hydrocodone. He had an appointment for an MRI of the cervical spine tomorrow morning at this hospital and an appointment with Dr. Doyle on morning Coding Level of Care Code ED [employer] Operator for Chg Fwd
[2024-11-29] MEDS: ondansetron 2 mg/ML SDV 2 mL 4 MG IVP (11:31)
[2024-11-29 11:32] VITALS: RESP 26; O2SAT 100
[2024-11-29] MEDS: morphine 4 mg/mL SDV 1 mL IVP ×2 (11:32→13:53)
[2024-11-29] MEDS: LORazepam 2 mg/mL INJ 1 mL IVP (11:33)
[2024-11-29] MEDS: ketorolac 30 mg/mL INJ IVP (11:35)
[2024-11-29] MEDS: dexamethasone 10 mg/mL INJ IM (11:38)
[2024-11-29 11:43] VITALS: BP 122/93; PULSE 115; RESP 26; O2SAT 100
[2024-11-29 11:44] LABS: Basophils % 0.2 %; Eosinophils # 0.2 10^3/uL (0.0-0.8); Eosinophils % 1.1 %; Hematocrit 52.5 % (37-53); Lymphocytes # 5.7 10^3/uL (0.8-4.8); Lymphocytes % 32.4 %; Mean Corpuscular HGB Conc 33.7 g/dL (30-55); Mean Corpuscular Hemoglobin 32.5 pg (27-33); Mean Corpuscular Volume 96.5 fl (82-101); Mean Platelet Volume 9.3 fL (7.4-10.4); Monocytes # 1.7 10^3/uL (0.2-0.9); Monocytes % 9.9 %; Neutrophils # 9.82 10^3/uL (1.8-7.7); Nucleated Red Blood Cells % 0 %; Platelet Count 274 10^3/cmm (157-399); Red Blood Count 5.44 10^6/uL (3.85-5.65); Red Cell Distribution Width 12.8 % (12.1-15.1); White Blood Count 17.54 10^3/uL (3.29-11.43)
[2024-11-29 12:05] LABS: Slide Review Slide Review Perform
[2024-11-29 12:06] LABS: Alanine Aminotransferase 31 U/L (0-41); Albumin Level 4.6 g/dL (3.5-5.2); Alkaline Phosphatase 60 U/L (40-130); Anion Gap 23.6 (5-19); Aspartate Amino Transferase 20 U/L (0-40); Blood Urea Nitrogen 14 mg/dL (6-20); Carbon Dioxide 22 mmol/L (22-29); Chloride 97 mmol/L (98-107); Creatinine Clr Calc Pharmacy 91.2641; Globulin 2.7 g/dL (1.3-4.6); Glomerular Filtration Rate 68.5 mL/min (90-130); Glucose 119 mg/dL (65-115); Osmolality Calculated 290 mOsm/kg (285-295); Potassium 3.6 mmol/L (3.5-5.1); Sodium 139 mmol/L (136-145); Total Bilirubin 0.6 mg/dL (0.15-1.2); Total Protein 7.3 g/dL (6.6-8.7)
[2024-11-29 12:42] VITALS: BP 140/80; PULSE 110; RESP 18; O2SAT 95
[2024-11-29 13:53] VITALS: RESP 18; O2SAT 99
[2024-11-29 14:31] VITALS: BP 135/97; PULSE 106; O2SAT 95
== END 2024-11-29 14:32 | disposition home or self-care (01) ==
PROVIDERS: Emergency Provider Family Medicine; PCP Student in an Organized Health Care Education/Training Program
DX: M54.12 Radiculopathy, cervical region (principal); M43.22 Fusion of spine, cervical region; Z87.891 Personal history of nicotine dependence
CPT/HCPCS: 72125; 80053; 85025; 86140; 96372; 96374; 96375; 96376; 99285; J1100; J1885; J2060; J2270; J2405

== ENCOUNTER 2024-11-30 09:17 | Outpatient (CLI) | payer MEDICARE, SELFPAY ==
--- NOTE | 2024-11-30 09:32 | MR_ITS ---
WS: [id number] MRI CERVICAL SPINE NONCONTRAST TECHNIQUE: Sagittal T1, T2 and STIR imaging. Axial T2, gradient, and fiesta imaging. CLINICAL INFORMATION: CERVICAL RADICULOPATHY COMPARISON: Recent CT 11/29/2024. Prior outside MRI 2019. FINDINGS: Straightening of the normal cervical lordosis. Cord signal is normal. Postoperative changes ACDF C4-C 6. Postoperative changes ACDF C4-5 is new since 2019. C2-C3: Mild facet arthropathy. Mild RIGHT bony foraminal narrowing. Osteophytic ridging. LEFT foramen is patent. Mild facet arthropathy. C3-C4: No significant disc bulging. Mild facet arthropathy. Mild RIGHT and no significant LEFT forami nal narrowing. C4-C5: Postoperative changes ACDF. Spinal canal is patent. Mild LEFT bony foraminal narrowing. Mild f acet arthropathy. C5-C6: Postoperative changes ACDF. Mild facet arthropathy with endplate ridging. Mild bilateral bony foraminal narrowing. C6-C7: Postoperative changes ACDF. Mild facet arthropathy. Mild RIGHT and no significant LEFT foramin al narrowing. C7-T1: LEFT eccentric disc osteophyte complex. Mild LEFT and no significant RIGHT foraminal narrowing . Spinal canal is patent. Visualized brain stem structures: Normal. Prevertebral soft tissues: Normal. MR/MR cervical spin wo con* [id number] IMPRESSION: 1. Straightening of the normal cervical lordosis. Postoperative changes ACDF C 4-C6. Interbody fusion C6-7. 2. No significant central canal stenosis. Cord signal is normal. 3. Mild LEFT C4-5, C5-C6 and LEFT C7-T1 foraminal narrowing. 4. Mild RIGHT C2-3, RIGHT C3-4, RIGHT C5-6 and RIGHT C6 6-7 foraminal narrowin g.
== END 2024-11-30 09:18 | disposition home or self-care (01) ==
PROVIDERS: PCP Family Medicine; Visit Provider Family Medicine
DX: M54.12 Radiculopathy, cervical region (principal); M43.22 Fusion of spine, cervical region; M25.78 Osteophyte, vertebrae
CPT/HCPCS: 72141

== ENCOUNTER 2024-12-01 08:52 | Emergency (ER) | payer MEDICARE, SELFPAY | END 2024-12-01 09:20 | disposition left against medical advice (07) | LOC: ER 08:54 | PROVIDERS: Emergency Provider Family Medicine; PCP Family Medicine | DX: Z53.21 Procedure and treatment not carried out due to patient leaving prior to being seen by health care provider (principal) | CPT/HCPCS: 99214 ==

== ENCOUNTER → 2025-01-26 14:35 | Outpatient (BNVA) | payer MEDICARE, SELFPAY | PROVIDERS: PCP Family Medicine; Referring Provider Orthopaedic Surgery; Visit Provider Specialist | DX: M47.22 Other spondylosis with radiculopathy, cervical region (principal); Z98.1 Arthrodesis status; M50.30 Other cervical disc degeneration, unspecified cervical region; G56.03 Carpal tunnel syndrome, bilateral upper limbs | CPT/HCPCS: 95910 ==

== ENCOUNTER → 2025-02-07 13:02 | Outpatient (BNVA) | payer MEDICARE, SELFPAY | PROVIDERS: PCP Family Medicine; Visit Provider Orthopaedic Surgery | DX: G56.01 Carpal tunnel syndrome, right upper limb (principal); Z09 Encounter for follow-up examination after completed treatment for conditions other than malignant neoplasm | CPT/HCPCS: 99204 ==